=== PATIENT | male | born 1945 | race Caucasian/White ===

== ENCOUNTER 2025-06-05 17:18 | Emergency (ER) | payer MEDICARE ==
[~2025-06-05] VITALS: Ht 182.9 cm; Wt 113.9 kg
[2025-06-05 17:54] VITALS: TEMP 98.5
[2025-06-05 18:05] LABS: PLATELET COUNT (AUTO) 263 K/uL (150-450); RED BLOOD CELL COUNT(AUTO) 4.19 MIL/uL (4.5-6.0); RED CELL DISTRIBUTION WIDTH 13.3 % (11.5-15.0); WHITE BLOOD COUNT (AUTO) 7.3 K/uL (4.3-11.0)
[2025-06-05 18:12] LABS: CALCIUM, SERUM 8.9 mg/dL (8.5-10.1); CREATININE 0.9 mg/dL (0.6-1.3); SODIUM SERUM 134 mmol/L (136-145); UREA NITROGEN, BLOOD 17 mg/dL (7-18)
[2025-06-05 18:18] LABS: ALCOHOL, BLOOD < 3 mg/dL (0-10); ASPARTATE AMINOTRANSFERASE 15 U/L (15-37); TOTAL PROTEIN, SERUM 6.3 g/dL (6.4-8.2)
[2025-06-05 18:43] LABS: APPEARANCE,URINE CLEAR (CLEAR); BLOOD, URINE Negative Ery/uL (NEGATIVE); LEUKOCYTE ESTERASE ,URINE Negative (NEGATIVE); UGLUCOSE Negative (NEGATIVE)
[2025-06-05 18:44] LABS: NITRITE, URINE NEGATIVE (NEGATIVE)
[2025-06-05 18:45] LABS: ADD URINE CULTURE NO; SQUAMOUS EPITHELIAL CELL,UR None Seen /HPF (None Seen)
[2025-06-05 18:49] LABS: AMPHETAMINE, URINE NEGATIVE (NEGATIVE); BARBITURATE, URINE NEGATIVE (NEGATIVE); BENZODIAZEPINE, URINE NEGATIVE (NEGATIVE); CANNABINOID, URINE NEGATIVE (NEGATIVE); COCCAINE, URINE NEGATIVE (NEGATIVE); OPIATE, URINE NEGATIVE (NEGATIVE)
[2025-06-05] MEDS ORDERED: GABA-532 PO (19:23)
[2025-06-05] MEDS ORDERED: FINA5TAB11 PO (19:23)
[2025-06-05] MEDS ORDERED: TAMS-12 PO (19:23)
[2025-06-05] MEDS ORDERED: MULT-213 PO (19:23)
[2025-06-05] MEDS ORDERED: TRAZ-252 PO (19:23)
[2025-06-05] MEDS ORDERED: QUET25TA PO (19:23)
[2025-06-05] MEDS ORDERED: THIA100T88 PO (19:23)
[2025-06-05] MEDS ORDERED: BENZ1LOZ30 PO (19:23)
[2025-06-05] MEDS ORDERED: ASCO-352 PO (19:23)
[2025-06-05] MEDS ORDERED: HYDR-4077 PO (19:23)
[2025-06-05] MEDS ORDERED: ACET325T53 PO (19:23)
[2025-06-05] MEDS ORDERED: MEMA10TA PO (19:23)
[2025-06-05] MEDS ORDERED: SODI100037 PO (19:23)
[2025-06-05] MEDS ORDERED: FOLI0.8T3 PO (19:23)
[2025-06-05] MEDS ORDERED: LEVO175T7 PO (19:23)
[2025-06-05] MEDS ORDERED: DEXT15DR23 EACHEYE (19:23)
[2025-06-05] MEDS ORDERED: CYAN50005 PO (19:23)
[2025-06-05] MEDS ORDERED: CHOL500062 PO (19:23)
[2025-06-05] MEDS ORDERED: ZOLP5TAB2 PO (19:23)
[2025-06-05] MEDS ORDERED: PARO10TA4 PO (19:23)
[2025-06-05] MEDS ORDERED: VITA1TAB56 PO (19:23)
[2025-06-05] MEDS ORDERED: ATOR20TA PO (19:23)
[2025-06-05] MEDS ORDERED: LOSA50TA3 PO (19:23)
[2025-06-05 20:14] VITALS: BP 118/89; O2SAT 94
== END 2025-06-05 21:18 | disposition home or self-care (01) ==
LOC: ER 17:25
DX: R45.6 Violent behavior (principal); F03.911 Unspecified dementia, unspecified severity, with agitation; G40.909 Epilepsy, unspecified, not intractable, without status epilepticus; Z79.899 Other long term (current) drug therapy; Z20.822 Contact with and (suspected) exposure to COVID-19
CPT/HCPCS: 36415; 80048-TC; 80076-TC; 81001; 85025-TC; G0480